=== PATIENT | male | born 1985 | race African-American/Black ===

== ENCOUNTER 2024-04-25 15:59 | Emergency (ER) | payer MEDICAID, MEDICARE ==
[~2024-04-25] VITALS: Ht 190.5 cm; Wt 127.0 kg
[~2024-04-25 15:59] MED LIST: CLONIDINE HCL0.1 MG PO; COREG12.5 MG PO; HYDRALAZINE HC100 MG PO; HYDRALAZINE HCL25 MG PO; HYDROCHLOROTHIA25 MG PO; LIPITOR20 MG PO; LISINOPRIL10 MG PO; NIFEDIPINE ER60 MG PO; NORVASC10 MG PO
[2024-04-25] MEDS: IBUPROFEN 400 MG TAB PO ONE (17:50)
[2024-04-25 18:09] VITALS: PULSE 70; RESP 16; TEMP 98.4; O2SAT 100
== END 2024-04-25 18:10 | disposition home or self-care (01) ==
LOC: ER 16:38
DX: M25.562 Pain in left knee (principal); M25.462 Effusion, left knee; X50.1XXA Overexertion from prolonged static or awkward postures, initial encounter; Y93.01 Activity, walking, marching and hiking; Y92.89 Other specified places as the place of occurrence of the external cause; I10 Essential (primary) hypertension
CPT/HCPCS: 99283